=== PATIENT | female | born 1990 | race Caucasian/White ===

== ENCOUNTER 2018-11-16 07:11 | Emergency (ER) | payer OTHER ==
[2018-11-16 08:04] LABS: Absolute Lymphocytes (CBC) 1.6 K/uL (0.7-4.9); Absolute Monocytes 0.7 K/uL (0.1-1.3); Absolute Neutrophil 9.9 K/uL (1.8-8.0); Basophils % 0.3 % (0-1.3); Eosinophils % 1.6 % (0-4.4); Hematocrit 41.5 % (36.0-45.0); Lymphocytes % 12.8 % (15.3-44.8); MPV 9.8 fL (7.6-11.3); Monocytes % 5.5 % (3.3-12.3); RBC Red Blood Cell Count 4.58 M/uL (3.86-4.86)
[2018-11-16] MEDS ORDERED: ONDANSETRON 4 MG/2 ML VIAL ONE (08:11)
[2018-11-16] MEDS ORDERED: NA CHLORIDE 0.9% 1,000 ML ONE (08:11)
[2018-11-16] MEDS ORDERED: KETOROLAC 30 MG/ML INJ ONE (08:11)
--- NOTE | 2018-11-16 08:31 | RAD REPORT ---
EXAM DESCRIPTION: CT - Stone Protocol - 11/16/2018 8:11 am CLINICAL HISTORY: Right-sided back and flank pain COMPARISON: None. TECHNIQUE: Axial 5 mm thick images were obtained without oral or IV contrast. The [id number]-[id number] span s the entirety of the system including uppermost abdomen and lung bases. All CT scans are performed using dose optimization technique as appropriate and may include automated exposure control or mA/KV adjustment according to patient size. FINDINGS: No hydronephrosis is present and no obstructing ureteral calculi. No suspicious renal mass es. Isodense masses and pyelonephritis are not excluded on a stone protocol CT scan. No urinary bladd er suspicious finding. No significant adrenal finding. There is faint mineralization of the renal pyr amids not seen as an acutely significant finding. Imaged portions of the liver, spleen and pancreas show no suspicious findings on non-contrast imaging . Cholecystectomy clips are present. No biliary tree dilatation. No suspicious bowel findings. No appendicitis findings. Uterus and ovaries are within normal limits f or a noncontrast study. Physiologic quantity of free fluid is seen in the cul de sac. No hernia, mass or bulky lymphadenopathy noted. No free air or pneumatosis. No focal inflammatory str anding. No significant bony abnormality. IMPRESSION: Negative noncontrast CT study for acute or significant finding. Isodense masses and pyelonephritis are not excluded on stone protocol technique.
[2018-11-16 09:06] LABS: BUN Blood Urea Nitrogen 16 mg/dL (7-18); Bicarbonate 26 mmol/L (21-32); Glucose Level 97 mg/dL (74-106); Potassium 3.5 mmol/L (3.5-5.1); Sodium Level 143 mmol/L (136-145)
[2018-11-16 09:09] LABS: Urine Blood 1+ (NEG); Urine Glucose NEGATIVE (NEG); Urine Protein NEGATIVE (NEG); Urine Specific Gravity >1.030 (1.005-1.030); Urine pH 5.5 (5.0-7.0)
--- NOTE | 2018-11-16 09:17 | ER ---
Nurse's Notes [facility] Name: Tom Puentes Age: 28 yrs Sex: Female : 1990 Arrival Date: 11/16/2018 Time: 07:16 Bed 13 Private MD: Diagnosis: Right flank pain Presentation: 11/16 07:27 Presenting complaint: Patient states: right mid back pain radiating to right lateral aa5 aspect of abdomen that began last night. Pt denies know injury, pt states "I thought it was period cramps but usually the period cramps I have are in my lower back". Transition of care: patient was not received from another setting of care. Onset of symptoms was October 2018. Risk Assessment: Do you want to hurt yourself or someone else? Patient reports no desire to harm self or others. Initial Sepsis Screen: Does the patient meet any 2 criteria? No. Patient's initial sepsis screen is negative. Does the patient have a suspected source of infection? No. Patient's initial sepsis screen is negative. Care prior to arrival: None. 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 - Social history:: Smoking status: Patient/guardian denies using tobacco. - Ebola Screening: : No symptoms or risks identified at this time. Screenin:55 Abuse screen: Denies threats or abuse. Denies injuries from another. Nutritional jl7 screening: No deficits noted. Tuberculosis screening: No symptoms or risk factors identified. Fall Risk IV access (20 points). Total Moran Fall Scale indicates No Risk (0-24 pts). Assessment: 07:55 General: Appears in no apparent distress. uncomfortable, Behavior is calm, cooperative, jl7 appropriate for age. Pain: Complains of pain in right mid back Pain radiates to right lower quadrant Pain currently is 8 out of 10 on a pain scale. Quality of pain is described as "Pain" Pain began "It woke me up last night." Is continuous. Neuro: Level of Consciousness is awake, alert, obeys commands, Oriented to person, place, time, situation. Cardiovascular: Patient's skin is warm and dry. Respiratory: Airway is patent Respiratory effort is even, unlabored, Respiratory pattern is regular, symmetrical. GI: No signs and/or symptoms were reported involving the gastrointestinal system. : No signs and/or symptoms were reported regarding the genitourinary system. EENT: No signs and/or symptoms were reported regarding the EENT system. Derm: Skin is pink, warm \\T\\ dry. 08:50 Reassessment: Patient appears in no apparent distress at this time. Patient and/or jl7 family updated on plan of care and expected duration. Pain level reassessed. Patient is alert, oriented x 3, equal unlabored respirations, skin warm/dry/pink. Pt reports decreased pain at this time. ERP notified Patient states symptoms have improved. Vital Signs: 07:28 BP 133 / 78; Pulse 71; Resp 16 S; Temp 98.3(TE); Pulse Ox 98% on R/A; Weight 77.11 kg aa5 (R); Height 5 ft. 5 in. (165.10 cm) (R); Pain 8/10; 09:00 BP 115 / 81; Pulse 61; Resp 16 S; Pulse Ox 100% on R/A; jl7 07:28 Body Mass Index 28.29 (77.11 kg, 165.10 cm) aa5 ED Course: 07:16 Patient arrived in ED. mr 07:23 Arm band placed on Patient placed in an exam room, on a stretcher. aa5 07:27 Les Cade RN is Primary Nurse. jl7 07:28 Triage completed. aa5 07:37 Angelique Mata FNP-C is PHCP. kb 07:37 Alejandro Silva MD is Attending Physician. kb 07:55 Patient has correct armband on for positive identification. Placed in gown. Bed in low jl7 position. Call light in reach. Side rails up X 1. Pulse ox on. NIBP on. Warm blanket given. 07:55 Initial lab(s) drawn, by me, sent to lab. Urine collected: clean catch specimen, jl7 cloudy. Inserted saline lock: 22 gauge in right antecubital area, using aseptic technique. Blood collected. 08:11 CT completed. Patient tolerated procedure well. Patient moved to CT via wheelchair. kw1 Patient moved back from CT. 08:12 CT Stone Protocol In Process Unspecified. EDMS 09:28 No provider procedures requiring assistance completed. IV discontinued, intact, jl7 bleeding controlled, No redness/swelling at site. Pressure dressing applied. Administered Medications: 08:00 Drug: NS 0.9% 1000 ml Route: IV; Rate: 1000 ml; Site: right forearm; jl7 09:00 Follow up: IV Status: Completed infusion; IV Intake: 1000ml jl7 08:01 Drug: TORadol 30 mg Route: IVP; Site: right forearm; jl7 08:49 Follow up: Response: No adverse reaction; Pain is decreased jl7 08:03 Drug: Zofran 4 mg Route: IVP; Site: right forearm; jl7 08:49 Follow up: Response: No adverse reaction; Nausea is decreased jl7 Intake: 09:00 IV: 1000ml; Total: 1000ml. jl7 Outcome: 09:16 Discharge ordered by . [place] 09:28 Discharged to home ambulatory. jl7 09:28 Condition: stable 09:28 Discharge instructions given to patient, Instructed on discharge instructions, follow up and referral plans. medication usage, Demonstrated understanding of instructions, follow-up care, medications, Prescriptions given X 1. 09:29 Patient left the ED. jl7 Signatures: Dispatcher [employer] EDMS Angelique Mata, GARAGE SUPERVISOR-C GARAGE SUPERVISOR-Ckfred Yovany Stefany Richardson, Josey, RN RN aa5 Les Cade RN RN jl7 Kendra Santillan kw1 Corrections: (The following items were deleted from the chart) 10:18 10:17 IV Status: Completed infusion; IV Intake: 1000ml jl7 jl7
--- NOTE | 2018-11-16 09:17 | EDPHYS ---
Physician Documentation [facility] Name: Tom Puentes Age: 28 yrs Sex: Female : 1990 Arrival Date: 11/16/2018 Time: 07:16 Bed 13 Private MD: ED Physician Alejandro Silva HPI: 11/16 08:32 This 28 yrs old Female presents to ER via Ambulatory with complaints of Back kb Pain. 08:32 The patient complains of pain in the right flank. The pain radiates to the abdomen. kb Onset: The symptoms/episode began/occurred last night. Modifying factors: The symptoms are alleviated by nothing. the symptoms are aggravated by nothing. Associated signs and symptoms: Pertinent positives: nausea, Pertinent negatives: diarrhea, dizziness, dysuria, fever, urinary frequency, headache, hematuria, pain radiating to the lower extremities, vomiting. Severity of pain: At its worst the pain was moderate in the emergency department the pain is unchanged. The patient has not experienced similar symptoms in the past. The patient has not recently seen a physician. 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 - Social history:: Smoking status: Patient/guardian denies using tobacco. - Ebola Screening: : No symptoms or risks identified at this time. ROS: 08:32 Constitutional: Negative for fever, chills, and weight loss, Cardiovascular: Negative kb for chest pain, palpitations, and edema, Respiratory: Negative for shortness of breath, cough, wheezing, and pleuritic chest pain, Abdomen/GI: Negative for abdominal pain, nausea, vomiting, diarrhea, and constipation, : Negative for injury, bleeding, discharge, and swelling, MS/Extremity: Negative for injury and deformity, Skin: Negative for injury, rash, and discoloration, Neuro: Negative for headache, weakness, numbness, tingling, and seizure. 08:32 Back: Positive for flank pain, on the right. Exam: 08:31 Constitutional: This is a well developed, well nourished patient who is awake, alert, kb and in no acute distress. Head/Face: Normocephalic, atraumatic. Neck: Trachea midline, no thyromegaly or masses palpated, and no cervical lymphadenopathy. Supple, full range of motion without nuchal rigidity, or vertebral point tenderness. No Meningismus. Chest/axilla: Normal chest wall appearance and motion. Nontender with no deformity. No lesions are appreciated. Cardiovascular: Regular rate and rhythm with a normal S1 and S2. No gallops, murmurs, or rubs. Normal PMI, no JVD. No pulse deficits. Respiratory: Lungs have equal breath sounds bilaterally, clear to auscultation and percussion. No rales, rhonchi or wheezes noted. No increased work of breathing, no retractions or nasal flaring. Abdomen/GI: Soft, non-tender, with normal bowel sounds. No distension or tympany. No guarding or rebound. No evidence of tenderness throughout. Skin: Warm, dry with normal turgor. Normal color with no rashes, no lesions, and no evidence of cellulitis. MS/ Extremity: Pulses equal, no cyanosis. Neurovascular intact. Full, normal range of motion. Neuro: Awake and alert, GCS 15, oriented to person, place, time, and situation. Cranial nerves II-XII grossly intact. Motor strength 5/5 in all extremities. Sensory grossly intact. Cerebellar exam normal. Normal gait. 08:31 Back: CVA tenderness, that is mild, is noted on the right. Vital Signs: 07:28 BP 133 / 78; Pulse 71; Resp 16 S; Temp 98.3(TE); Pulse Ox 98% on R/A; Weight 77.11 kg aa5 (R); Height 5 ft. 5 in. (165.10 cm) (R); Pain 8/10; 09:00 BP 115 / 81; Pulse 61; Resp 16 S; Pulse Ox 100% on R/A; jl7 07:28 Body Mass Index 28.29 (77.11 kg, 165.10 cm) aa5 MDM: 07:37 Patient medically screened. kb 08:31 Data reviewed: vital signs, nurses notes. Data interpreted: Pulse oximetry: on room air kb is 98 %. Interpretation: normal. 09:15 Counseling: I had a detailed discussion with the patient and/or guardian regarding: the kb historical points, exam findings, and any diagnostic results supporting the discharge/admit diagnosis, lab results, radiology results, the need for outpatient follow up, a family practitioner, to return to the emergency department if symptoms worsen or persist or if there are any questions or concerns that arise at home. 11/16 07:52 Order name: Basic Metabolic Panel; Complete Time: 09:14 kb 11/16 07:52 Order name: CBC with Diff; Complete Time: 08:07 kb 11/16 07:52 Order name: CT Stone Protocol; Complete Time: 08:33 kb 11/16 07:52 Order name: Urine Dipstick--Ancillary (enter results); Complete Time: 09:14 kb 11/16 07:52 Order name: Urine --Ancillary (enter results); Complete Time: 09:14 kb 11/16 07:52 Order name: IV Saline Lock; Complete Time: 08:04 kb 11/16 07:52 Order name: Labs collected and sent; Complete Time: 08:04 kb Administered Medications: 08:00 Drug: NS 0.9% 1000 ml Route: IV; Rate: 1000 ml; Site: right forearm; jl7 09:00 Follow up: IV Status: Completed infusion; IV Intake: 1000ml jl7 08:01 Drug: TORadol 30 mg Route: IVP; Site: right forearm; jl7 08:49 Follow up: Response: No adverse reaction; Pain is decreased jl7 08:03 Drug: Zofran 4 mg Route: IVP; Site: right forearm; jl7 08:49 Follow up: Response: No adverse reaction; Nausea is decreased jl7 Disposition: 10:23 Co-signature as Attending Physician, Alejandro Silva MD I agree with the assessment and kdr plan of care. Disposition: 11/16/18 09:16 Discharged to Home. Impression: Right flank pain. - Condition is Stable. - Discharge Instructions: Flank Pain, Edcj-th-Pepr. - Prescriptions for Diclofenac Sodium 75 mg Oral Tablet, Delayed Release (E.C.) - take 1 tablet by ORAL route 2 times per day As needed; 30 tablet. - Medication Reconciliation Form, Thank You Letter, Antibiotic Education, Prescription Opioid Use, Work release form form. - Follow up: Emergency Department; When: As needed; Reason: Worsening of condition. Follow up: Private Physician; When: 2 - 3 days; Reason: Recheck today's complaints, Continuance of care, Re-evaluation by your physician. Signatures: Dispatcher [employer] EDAngelique Bethea, CAD DESIGN ENGINEER-C CAD DESIGN ENGINEER-Ckb Alejandro Silva MD MD kdr Calderon, Audri RN RN aa5 Les Cade RN RN jl7 Corrections: (The following items were deleted from the chart) 09:29 09:16 11/16/2018 09:16 Discharged to Home. Impression: Right flank pain. Condition is jl7 Stable. Forms are Medication Reconciliation Form, Thank You Letter, Antibiotic Education, Prescription Opioid Use. Follow up: Emergency Department; When: As needed; Reason: Worsening of condition. Follow up: Private Physician; When: 2 - 3 days; Reason: Recheck today's complaints, Continuance of care, Re-evaluation by your physician. kb
[2018-11-16 09:35] VITALS: TEMP 98.3
[2018-11-16 09:36] VITALS: BP 115/81; O2SAT 100
== END 2018-11-16 09:29 | disposition home or self-care (01) ==
LOC: ER 07:11
DX: R10.9 Unspecified abdominal pain (principal)
CPT/HCPCS: 36415; 74176; 76377; 80048; 81003; 81025; 85025; 96361; 96374; 96375; 99284; J2405; J7030

== ENCOUNTER 2018-11-16 15:51 | Day surgery (SDC) | payer OTHER ==
[2018-11-16] MEDS ORDERED: NA CHLORIDE 0.9% 1,000 ML ONE (17:28)
[2018-11-16] MEDS ORDERED: KETOROLAC 30 MG/ML INJ ONE ×2 (17:28→20:05)
[2018-11-16] MEDS ORDERED: ONDANSETRON 4 MG/2 ML VIAL ONE ×2 (17:28→20:05)
[2018-11-16 17:43] LABS: Absolute Lymphocytes (CBC) 1.3 K/uL (0.7-4.9); Absolute Monocytes 0.8 K/uL (0.1-1.3); Absolute Neutrophil 12.6 K/uL (1.8-8.0); Basophils % 0.2 % (0-1.3); Eosinophils % 0.3 % (0-4.4); Hematocrit 37.7 % (36.0-45.0); Lymphocytes % 8.9 % (15.3-44.8); Monocytes % 5.4 % (3.3-12.3); RBC Red Blood Cell Count 4.14 M/uL (3.86-4.86)
--- NOTE | 2018-11-16 17:56 | RAD REPORT ---
EXAM DESCRIPTION: US - Transvaginal Study Probe - 11/16/2018 5:45 pm CLINICAL HISTORY: abd/pelvic pain R Pelvic pain. COMPARISON: Stone Protocol dated 11/16/2018 FINDINGS: The uterus is normal in size, shape and echotexture. The uterus measures 6.4 x 5.0 x 4.2 c m. The endometrial stripe measures 4 mm, normal. Both ovaries are normal in size, shape and echotexture. The right ovary measures 3.9 x 1.6 x 1.4 cm. The left ovary measures 4.0 x 1.8 x 1.6 cm. No ovarian or parovarian lesions. No adnexal masses. Normal Doppler blood flow was demonstrated to both ovaries. No significant pelvic ascites. IMPRESSION: Unremarkable study.
[2018-11-16 18:01] LABS: ALT/SGPT 27 U/L (12-78); AST/SGOT 22 U/L (15-37); Albumin 3.9 g/dL (3.4-5.0); Alkaline Phosphatase 52 U/L (45-117); BUN Blood Urea Nitrogen 13 mg/dL (7-18); Bicarbonate 30 mmol/L (21-32); Bilirubin Direct 0.3 mg/dL (0-0.2); Bilirubin Total 1.5 mg/dL (0.2-1.0); Glucose Level 91 mg/dL (74-106); Lipase 73 U/L (73-393); Potassium 3.7 mmol/L (3.5-5.1); Protein, Total 6.8 g/dL (6.4-8.2); Sodium Level 145 mmol/L (136-145)
--- NOTE | 2018-11-16 18:04 | RAD REPORT ---
EXAM DESCRIPTION: CTAbdomen Pelvis W Contrast - 11/16/2018 5:54 pm CLINICAL HISTORY: Abdominal pain. RLQ abd pain COMPARISON: Stone Protocol dated 11/16/2018 TECHNIQUE: Biphasic CT imaging of the abdomen and pelvis was performed with 100 ml non-ionic IV cont rast. All CT scans are performed using dose optimization technique as appropriate and may include automated exposure control or mA/KV adjustment according to patient size. FINDINGS: The lung bases are clear.Cholecystectomy. The liver, spleen, pancreas, adrenal glands and kidneys are within normal limits. No bowel obstruction, free air, free fluid or abscess. The appendix is thickened to 10-11 mm, raisin g the possibility of acute early appendicitis. No evidence of significant lymphadenopathy. No suspicious bony findings. IMPRESSION: Mildly thickened appendix is identified, raising the possibility of early acute appendic itis.
--- NOTE | 2018-11-16 18:43 | ER ---
Nurse's Notes [facility] Name: Tom Puentes Age: 28 yrs Sex: Female : 1990 Arrival Date: 11/16/2018 Time: 15:52 Bed 18 Private MD: Diagnosis: Acute appendicitis Presentation: 11/16 15:55 Presenting complaint: Patient states: "I was just seen here this morning and my back aa5 was hurting but now it's my stomach". Pt c/o pain to right mid back radiating to RUQ. Transition of care: patient was not received from another setting of care. Onset of symptoms was October 2018. Risk Assessment: Do you want to hurt yourself or someone else? Patient reports no desire to harm self or others. Initial Sepsis Screen: Does the patient meet any 2 criteria? No. Patient's initial sepsis screen is negative. Does the patient have a suspected source of infection? No. Patient's initial sepsis screen is negative. Care prior to arrival: None. 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 - Social history:: Smoking status: Patient/guardian denies using tobacco. - Ebola Screening: : No symptoms or risks identified at this time. - Family history:: not pertinent. - Hospitalizations: : No recent hospitalization is reported. Screenin:25 Abuse screen: Denies threats or abuse. Denies injuries from another. Nutritional aj screening: No deficits noted. Tuberculosis screening: No symptoms or risk factors identified. Fall Risk None identified. Assessment: 17:25 General: Appears in no apparent distress. comfortable, Behavior is calm, cooperative, aj appropriate for age. Pain: Complains of pain in back and abdomen. Neuro: Level of Consciousness is awake, alert, obeys commands, Oriented to person, place, time, situation, Appropriate for age. Respiratory: Airway is patent Respiratory effort is even, unlabored, Respiratory pattern is regular, symmetrical. Derm: Skin is intact, is healthy with good turgor, Skin is pink, warm \\T\\ dry. normal. 18:33 Reassessment: Rody, Manufacturers Service Representative notified that pt will be admitted to OR in approx iw 30 minutes, per Dr. Heath, states she will call out crew now. 19:06 Reassessment: Patient appears in no apparent distress at this time. Patient is alert, rr5 oriented x 3, equal unlabored respirations, skin warm/dry/pink. dr. heath at bedside seen and examined the patient. Patient states symptoms have improved. 19:15 Reassessment: taken to OR via wheelchair, endorsed to kamryn. rr5 Vital Signs: 15:56 BP 132 / 82; Pulse 112; Resp 18 S; Temp 99.2(O); Pulse Ox 98% on R/A; Pain 6/10; aa5 18:42 BP 131 / 72; Pulse 89; Resp 19; Pulse Ox 99% on R/A; aj ED Course: 15:52 Patient arrived in ED. aa5 15:55 Triage completed. aa5 15:55 Arm band placed on. aa5 16:42 Thea Nieto, RN is Primary Nurse. aj 16:44 Neville Plummer MD is Attending Physician. wa 17:25 Patient has correct armband on for positive identification. aj 17:25 Inserted saline lock: 20 gauge in left antecubital area, using aseptic technique. Blood aj collected. 17:[address] vr 17:45 Transvaginal Study Probe In Process Unspecified. EDMS 17:54 CT completed. Patient tolerated procedure well. Patient moved back from CT. vr 17:55 CT Abd/Pelvis - W/Contrast In Process Unspecified. EDMS 18:41 Carlos Heath MD is Hospitalizing Provider. wa 19:15 No provider procedures requiring assistance completed. Patient admitted, IV remains in rr5 place. intact. Administered Medications: 17:24 Drug: Zofran 4 mg Route: IVP; Site: left antecubital; aj 18:35 Follow up: Response: Nausea is decreased aj 17:24 Drug: NS 0.9% 1000 ml Route: IV; Rate: 1 bolus; Site: left antecubital; aj 19:11 Follow up: Response: No adverse reaction; IV Status: Completed infusion; IV Intake: rr5 1000ml 17:25 Drug: TORadol 30 mg Route: IVP; Site: left antecubital; aj 18:35 Follow up: Response: Pain is decreased aj 18:43 Drug: Zosyn 3.375 grams Route: IVPB; Infused Over: 60 mins; Site: left antecubital; aj 19:11 Follow up: Response: No adverse reaction; IV Status: Completed infusion; IV Intake: rr5 100ml Intake: 19:11 IV: 100ml; Total: 100ml. rr5 19:11 IV: 1000ml; Total: 1100ml. rr5 Outcome: 18:42 Decision to Hospitalize by Provider. mt 19:15 Patient left the ED. rr5 19:15 Admitted to OR accompanied by nurse, via wheelchair, room OR, with chart, Report called rr5 to kamryn 19:15 Condition: stable 19:15 Instructed on the need for admit. Signatures: Dispatcher [employer] Thea Parker RN RN aj Williams, Irene, RN RN iw Calderon, Audri, RN RN aa5 Davis, Victoria vr Appiah, William, MD MD wa Roque, Raymond, RN RN rr5
--- NOTE | 2018-11-16 18:43 | EDPHYS ---
Physician Documentation [facility] Name: Tom Puentes Age: 28 yrs Sex: Female : 1990 Arrival Date: 11/16/2018 Time: 15:52 Bed 18 Private MD: ED Physician Neville Plummer HPI: 11/16 18:33 This 28 yrs old Female presents to ER via Ambulatory with complaints of wa Abdominal Pain. 18:33 The patient presents with abdominal pain in the periumbilical area. right lower wa quadrant. Onset: The symptoms/episode began/occurred today. The symptoms do not radiate. Associated signs and symptoms: Pertinent positives: diarrhea x 1 , Pertinent negatives: chest pain, shortness of breath, vomiting. The symptoms are described as dull. Modifying factors: The symptoms are alleviated by nothing, the symptoms are aggravated by nothing. Severity of pain: At its worst the pain was moderate in the emergency department the pain is actually worse moderately. The patient has experienced a previous episode, seen here earlier today. pain worse when got home. The patient has been recently seen by a physician: this ED this AM. 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 - Social history:: Smoking status: Patient/guardian denies using tobacco. - Ebola Screening: : No symptoms or risks identified at this time. - Family history:: not pertinent. - Hospitalizations: : No recent hospitalization is reported. ROS: 18:36 Constitutional: Negative for fever, chills, and weight loss, Eyes: Negative for injury, wa pain, redness, and discharge, ENT: Negative for injury, pain, and discharge, Neck: Negative for injury, pain, and swelling, Cardiovascular: Negative for chest pain, palpitations, and edema, Respiratory: Negative for shortness of breath, cough, wheezing, and pleuritic chest pain, Back: Negative for injury and pain, MS/Extremity: Negative for injury and deformity, Skin: Negative for injury, rash, and discoloration, Neuro: Negative for headache, weakness, numbness, tingling, and seizure, Psych: Negative for depression, anxiety, suicide ideation, homicidal ideation, and hallucinations. 18:36 Abdomen/GI: Positive for abdominal pain, diarrhea, Negative for vomiting. 18:36 All other systems are negative. Exam: 18:37 Constitutional: This is a well developed, well nourished patient who is awake, alert, wa and in no acute distress. Head/Face: Normocephalic, atraumatic. Eyes: Pupils equal round and reactive to light, extra-ocular motions intact. Lids and lashes normal. Conjunctiva and sclera are non-icteric and not injected. Cornea within normal limits. Periorbital areas with no swelling, redness, or edema. ENT: Nares patent. No nasal discharge, no septal abnormalities noted. Tympanic membranes are normal and external auditory canals are clear. Oropharynx with no redness, swelling, or masses, exudates, or evidence of obstruction, uvula midline. Mucous membranes moist. Neck: Trachea midline, no thyromegaly or masses palpated, and no cervical lymphadenopathy. Supple, full range of motion without nuchal rigidity, or vertebral point tenderness. No Meningismus. Chest/axilla: Normal chest wall appearance and motion. Nontender with no deformity. No lesions are appreciated. Cardiovascular: Regular rate and rhythm with a normal S1 and S2. No gallops, murmurs, or rubs. Normal PMI, no JVD. No pulse deficits. Respiratory: Lungs have equal breath sounds bilaterally, clear to auscultation and percussion. No rales, rhonchi or wheezes noted. No increased work of breathing, no retractions or nasal flaring. Back: No spinal tenderness. No costovertebral tenderness. Full range of motion. Skin: Warm, dry with normal turgor. Normal color with no rashes, no lesions, and no evidence of cellulitis. MS/ Extremity: Pulses equal, no cyanosis. Neurovascular intact. Full, normal range of motion. Neuro: Awake and alert, GCS 15, oriented to person, place, time, and situation. Cranial nerves II-XII grossly intact. Motor strength 5/5 in all extremities. Sensory grossly intact. Cerebellar exam normal. Normal gait. Psych: Awake, alert, with orientation to person, place and time. Behavior, mood, and affect are within normal limits. 18:37 Abdomen/GI: Inspection: abdomen appears normal, Bowel sounds: normal, in all quadrants, Palpation: soft, in all quadrants, mild abdominal tenderness, in the umbilical area and right lower quadrant. Vital Signs: 15:56 BP 132 / 82; Pulse 112; Resp 18 S; Temp 99.2(O); Pulse Ox 98% on R/A; Pain 6/10; aa5 18:42 BP 131 / 72; Pulse 89; Resp 19; Pulse Ox 99% on R/A; aj MDM: 16:44 Patient medically screened. wa 18:37 Differential diagnosis: noted low grade fever, tachycardic low abd pain. seen here wa earlier. will r/o acute appy vs acute ovarian path. will reassess. Data reviewed: vital signs, nurses notes, lab test result(s), radiologic studies. Test interpretation: by ED physician or midlevel provider: labs noted for leukocytosis. pelvic US no acute process. CTabd/pelvis: consistent with early acute appy. Response to treatment: the patient's symptoms have markedly improved after treatment. Physician consultation: Carlos Miller MD. 18:41 ED course: zosyn IV. spoke with regional transportation manager surgeon. in route to see pt in 30 min. de 11/16 17:12 Order name: Basic Metabolic Panel; Complete Time: 18:13 de 11/16 17:12 Order name: CBC with Diff de 11/16 17:12 Order name: Hepatic Function; Complete Time: 18:13 de 11/16 17:12 Order name: Lipase; Complete Time: 18:13 de 11/16 17:46 Order name: CBC Smear Scan EDLA 11/16 17:12 Order name: IV Saline Lock; Complete Time: 17:25 de 11/16 17:12 Order name: Labs collected and sent; Complete Time: 17:25 de 11/16 17:14 Order name: CT Abd/Pelvis - W/Contrast; Complete Time: 18:13 de 11/16 17:35 Order name: Transvaginal Study Probe; Complete Time: 18:13 EDMS Administered Medications: 17:24 Drug: Zofran 4 mg Route: IVP; Site: left antecubital; aj 18:35 Follow up: Response: Nausea is decreased aj 17:24 Drug: NS 0.9% 1000 ml Route: IV; Rate: 1 bolus; Site: left antecubital; aj 19:11 Follow up: Response: No adverse reaction; IV Status: Completed infusion; IV Intake: rr5 1000ml 17:25 Drug: TORadol 30 mg Route: IVP; Site: left antecubital; aj 18:35 Follow up: Response: Pain is decreased aj 18:43 Drug: Zosyn 3.375 grams Route: IVPB; Infused Over: 60 mins; Site: left antecubital; aj 19:11 Follow up: Response: No adverse reaction; IV Status: Completed infusion; IV Intake: rr5 100ml Disposition: 11/16/18 18:42 Hospitalization ordered by Carlos Miller for Observation. Preliminary diagnosis is Acute appendicitis. - Bed requested for Operating Room. - Status is Observation. rr5 - Condition is Stable. - Problem is new. - Symptoms have improved. UTI on Admission? No Signatures: Dispatcher [employer] EDThea Johnson RN RN aj Calderon, Audri RN RN aa5 Neville Plummer MD MD wa Roque, Raymond, RN RN rr5 Corrections: (The following items were deleted from the chart) 17:35 17:15 Pelvis Complete+US.RAD.BRZ ordered. EDLA EDLA 19:15 18:42 Hospitalization Ordered by Carlos Miller MD for Observation. Preliminary diagnosis rr5 is Acute appendicitis. Bed requested for Operating Room. Status is Observation. Condition is Stable. Problem is new. Symptoms have improved. UTI on Admission? No. jessenia
[2018-11-16] MEDS ORDERED: PIPER/TAZO/NS 3.375gm 3.375 GM/100 ML BAG ONE (18:50)
[2018-11-16 18:59] LABS: Blood Morphology Comment NOT SEEN (NOT SEEN); Platelet Estimate ADEQ; Urine White Blood Cell Casts OK
[2018-11-16] MEDS ORDERED: PROPOFOL 200 MG/20 ML VIAL IV ONE (19:25)
[2018-11-16] MEDS ORDERED: FENTANYL CITR 100 MCG/2 ML ONE ×2 (19:26→20:25)
[2018-11-16] MEDS ORDERED: ROCURONIUM 50 MG/5 ML VIAL IV ONE (19:26)
[2018-11-16] MEDS ORDERED: LIDOCAINE 2% MPF 5 ML VIAL ONE (19:27)
[2018-11-16] MEDS ORDERED: Ringers Lactate 1,000 ML IV ONE (19:30)
[2018-11-16] MEDS ORDERED: BUPIVACAINE 0.25% PF 10 ML VIAL ONE (19:44)
[2018-11-16] MEDS ORDERED: DEXAMETHASONE 10 MG/ML VIAL ONE (20:06)
[2018-11-16] MEDS ORDERED: EPHEDRINE SULF 50 MG/ML VIAL ONE (20:06)
[2018-11-16] MEDS ORDERED: NEOSTIGMINE 1 MG/ML -10 ML VIAL ONE (20:10)
[2018-11-16] MEDS ORDERED: GLYCOPYRROLATE 0.2 MG/ML SYR ONE (20:10)
--- NOTE | 2018-11-16 20:24 | P.OP ---
Preoperative diagnosis: Acute Appendicitis Postoperative diagnosis: Acute Appendicitis Primary procedure: Laparoscopic Appendectomy Anesthesia: GETA + Local Estimated blood loss: <5cc Specimen: Vermiform Appendix Findings: Acute Appendicitis, non-perforated Complications: None Transferred to: Recovery Room Condition: Good
[2018-11-16] MEDS: HYDROMORPHONE HCL 1 MG/ML INJ ONE ×2 (20:42→20:47)
[2018-11-16] MEDS ORDERED: ONDANSETRON HCL 40 MG/20 ML VIAL ONE (20:56)
[2018-11-16] MEDS ORDERED: HYDROCODONE/APAP 7.5/325 MG TAB ONE (21:10)
[2018-11-16] MEDS ORDERED: IBUPROFEN 400 MG TAB ONE (21:22)
[2018-11-16 21:40] VITALS: BP 116/61; TEMP 98.2; O2SAT 100
--- NOTE | 2018-11-17 05:45 | PREOPHP ---
Date of Admission: 11/16/2018 Brief History Of Present Illness: The patient is a 28-year-old female, who presents to the hospital with abdominal pain beginning earlier approximately 7 a.m., she stated the pain was predomi nantly in the back and right side of her abdomen. She came to the ER earlier this morning, was worke d up and sent home with pain medication, but since getting home, her pain got significantly worse. T he pain medication given over the counter helped with her back pain, but the abdominal pain began to intensify around the periumbilical region and to the right lower quadrant. It got significantly wors e and as such, she came back to the emergency room. Past Medical History: Significant for cholelithiasis. Past Surgical History: She had a laparoscopic cholecystectomy and she has had an EGD and colonoscopy . Social History: She denies smoking. She drinks recreationally. She denies any recreational drug us e. 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 Allergies: SHE HAS NO KNOWN DRUG ALLERGIES. Medications: None. Review of Systems: A 10-point review of systems other than HPI, denies. Physical Examination: General: At the time of my examination, she is awake, alert, oriented. Psychiatric: She is appropria te and conversive. HEENT: She is normocephalic. Sclerae anicteric. Mucosa is moist. Oropharynx is clear. Neck: Supple. No JVD. Chest: Normal expansion and excursion. Cardiovascular: Regular rate and rhythm. Pulmonary: Clear to auscultation bilaterally. Abdomen: Soft with positive right lower quadrant tenderness to palpation. Positive focal peritoniti s. Positive rebound. Positive guarding. All in the region of the McBurney's point, localized aroun d the region of McBurney's point. Extremities: No clubbing, cyanosis, or edema. Skin: Warm and dry. Laboratory Data: Reveals white blood count 14.8, hemoglobin is 12.6, hematocrit of 37.7, platelet co unt is 168, neutrophils 85%. Sodium 145, potassium 3.7, chloride 110, carbon dioxide 30, BUN 13, cre atinine 0.67, glucose is 91, calcium is 8.5, total bilirubin 1.5, direct component 0.5, AST is 22, AL T 27, alkaline phosphatase is 52, lipase is 73. She had a HCG urine test on 11/16/2018 at 7:52 a.m., which was negative. She had an imaging performed which included a CT scan of the abdomen and pelvis as well as a transvag inal ultrasound. CT of the abdomen and pelvis was officially read as the appendix is thickened to 10-11 mm, raising th e possibility of an acute early appendicitis. No evidence of significant lymphadenopathy. No suspic ious bony findings. She additionally had a transvaginal ultrasound, which was officially read as unremarkable study. Assessment And Plan: This is a 28-year-old female who comes in with signs and symptoms of early acut e appendicitis. 1.IV fluid hydration. 2.Antibiotic coverage. 3.I have explained the risks, benefits, and alternatives of laparoscopic, possible open appendectomy including but not limited to bleeding, infection, damage to surrounding tissues, need for further op eration and procedures. The patient agrees to proceed as indicated. MATTEO/DAVIAN Voice ID: [id number]
--- NOTE | 2018-11-17 06:51 | OP ---
Date of Procedure: 11/16/2018 Surgeon: Carlos Miller MD, Preoperative Diagnosis: Acute appendicitis. Postoperative Diagnosis: Acute appendicitis. Procedure Performed: Laparoscopic appendectomy. Anesthesia: General endotracheal plus local. Estimated Blood Loss: Less than 5 cc. Specimen: Vermiform appendix. Findings: Acute appendicitis, nonperforated. Complications: None. Disposition: Transferred to recovery room in good condition. Procedure In Detail: After informed consent was obtained, patient was brought to the operating room, prepped and draped in the usual sterile fashion. After adequate anesthesia was achieved, an infraum bilical area was anesthetized with 0.25% Marcaine, sharply incised and a 5-mm trocar was introduced i n the abdomen without evidence of complication. Insufflation was obtained to 15 mmHg at this time. The area was inspected. There was no injury to vital structures upon entry into the abdomen. Additi onal trocar site chosen in the suprapubic region. This was similarly anesthetized, sharply incised, and a 5-mm trocar was introduced in the abdomen without evidence of complication. Additional trocar site was chosen in the left lower quadrant. This was similarly anesthetized, sharply incised. A 5-m m trocar was introduced in the abdomen without evidence of complication. The patient was then positi oned in head down, right side up position. Ratcheted grasper was used to grasp the patient's appendi x. There were some adhesions between the cecum and the anterior abdominal wall. This was taken down with the EnSeal device. The appendix was then grasped, elevated, and a mesoappendiceal window was c reated with a [place] retractor. The Endo NUNU 35 blue load was then fired across the base of the ap pendix with good approximation of the tissues. The LigaSure device then used to take the mesoappendi x down without evidence of complication. Good hemostasis was achieved. The staple line appeared to be in good anatomic position without any evidence of leakage. The appendix was then placed in an End oCatch bag, removed through umbilical trocar. There was no evidence of perforation at this time. Th e appendix was sent off for pathologic examination at this time. The area was copiously irrigated mu ltiple times until completely clear. The area was inspected for proper hemostasis, which was achieve d without any additional hemostatic maneuvers. Additionally, the staple line appeared to be in good anatomic position without any leakage. The abdomen was then copiously irrigated and suctioned comple tely dry. The patient was positioned in neutral position. The abdomen was suctioned out one last ti me and the umbilical trocar was then removed. The umbilical trocar site was then closed with a 12 mm under direct visualization without evidence of complication. The abdomen was then completely desuff lated under direct visualization without evidence of complication. All trocars were then removed. A ll skin incisions were copiously irrigated and closed with a 4-0 Monocryl in a running fashion. Derm abond was placed over top. The patient tolerated the procedure well without evidence of complication and transferred to PACU in good condition. All counts were correct at the end of the case. MATTEO/DAVIAN Voice ID: [id number] Report ID: [id number]
== END 2018-11-16 21:39 | disposition home or self-care (01) ==
LOC: ER 15:51 → OR 20:10
PROVIDERS: ATTEND Surgery
PROC: 0DTJ4ZZ Resection of Appendix, Percutaneous Endoscopic Approach (ICD-10-PCS; principal; 2018-11-16 20:00)
DX: K35.80 Unspecified acute appendicitis (principal)
CPT/HCPCS: 36415; 74177; 76830; 80048; 80076; 83690; 85025; 88304; 96361; 96365; 96375; 99285; J1100; J1170; J2405; J2543; J2704; J2710; J3010; J7030; Q9967

== ENCOUNTER 2019-07-01 15:58 | Emergency (ER) | payer OTHER ==
--- OUTSIDE RECORDS SUMMARY | 2019-07-01 16:01 | XMS REPORT ---
:1990 Author Organization e[employer] Care Team Providers Name Role Phone Marina Hemphill Provider Role Unavailable Allergies, Adverse Reactions, Alerts Substance Reaction Event Type N.K.D.A. Info Not Available Non Drug Allergy Problems Problem Type Condition Code Onset Dates Condition Status Assessment Strep tonsillitis J03.00 Active Problem Anxiety F41.9 Active Assessment Anxiety F41.9 Active Medications Medication Code Code Instructions Start End Date Status Dosage System Date Augmentin [facility] [place] 2] 12525727629 875-125 MG Jun 02, Jun 12, Active 1 tablet Orally every 12 2019 2019 hrs BusPIRone HCl [facility] [place]NOTE 2] [id number] 5 MG Orally Jun 02, Active 1 tablet Three times a 2019 day Results Name Result Date Reference Range Unit Abnormality Flag STREP A RAPID ----Result POS [id number] Summary Purpose eClinicalWorks Submission
--- NOTE | 2019-07-01 17:16 | RAD REPORT ---
EXAM DESCRIPTION: CT - Head Brain Wo Cont - 07/01/2019 5:00 pm CLINICAL HISTORY: Head injury. Rock hit patient's head COMPARISON: None TECHNIQUE: Computed axial tomography of the head was obtained. IV contrast was not requested. All CT scans are performed using dose optimization technique as appropriate and may include automated exposure control or mA/KV adjustment according to patient size. FINDINGS: An intracranial bleed is not seen . The ventricles are normal in caliber. No extra-axial fluid collection is noted. Fluid is present within the left maxillary sinus. Mastoids are clear IMPRESSION: No acute intracranial abnormality is seen. If patient's symptoms persist MRI of the bra in would be recommended. Fluid in left maxillary sinus may indicate acute sinusitis
--- NOTE | 2019-07-01 17:32 | ER ---
Nurse's Notes [facility] Name: Tom Puentes Age: 29 yrs Sex: Female : 1990 Arrival Date: 07/01/2019 Time: 16:00 Bed 17 Private MD: Unknown, Unknown Diagnosis: Acute sinusitis;Superficial injury of head Presentation: 07/01 16:35 Presenting complaint: Patient states: 6 pound rock fell on right side of head last jl7 night then about 1400 clear yellow fluid started dripping out of my nose, called PCP and they advised to come get checked out. Transition of care: patient was not received from another setting of care. Mechanism of Injury: The problem was sustained at home, resulted from rock. Onset of symptoms was July 01, 2019 at 15:00. Risk Assessment: Do you want to hurt yourself or someone else? Patient reports no desire to harm self or others. Initial Sepsis Screen: Does the patient meet any 2 criteria? No. Patient's initial sepsis screen is negative. Does the patient have a suspected source of infection? No. Patient's initial sepsis screen is negative. Care prior to arrival: None. 16:35 Method Of Arrival: Ambulatory [facility] 16:35 Acuity: GIAN 4 jl7 Triage Assessment: 16:48 Neuro: Reports. 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 - Social history:: Smoking status: Patient/guardian denies using tobacco. - Ebola Screening: : No symptoms or risks identified at this time. Screenin:47 Abuse screen: Denies threats or abuse. Denies injuries from another. Nutritional ca1 screening: No deficits noted. Tuberculosis screening: No symptoms or risk factors identified. Fall Risk None identified. Assessment: 16:47 General: Appears in no apparent distress. comfortable, Behavior is calm, cooperative, ca1 appropriate for age. Pain: Denies pain. Neuro: Level of Consciousness is awake, alert, obeys commands, Oriented to person, place, time, situation. Cardiovascular: Heart tones S1 S2 present Capillary refill < 3 seconds Patient's skin is warm and dry. Respiratory: Airway is patent Respiratory effort is even, unlabored, Respiratory pattern is regular, symmetrical, Breath sounds are clear bilaterally. GI: Abdomen is flat, non-distended, Bowel sounds present X 4 quads. Abd is soft and non tender X 4 quads. : No deficits noted. No signs and/or symptoms were reported regarding the genitourinary system. EENT: No deficits noted. No signs and/or symptoms were reported regarding the EENT system. Derm: Skin is intact, is healthy with good turgor, Skin is pink, warm \T\ dry. Musculoskeletal: Circulation, motion, and sensation intact. Capillary refill < 3 seconds, Range of motion: intact in all extremities. 17:45 Reassessment: Patient appears in no apparent distress at this time. Patient is alert, ca1 oriented x 3, equal unlabored respirations, skin warm/dry/pink. Vital Signs: 16:39 BP 111 / 66; Pulse 64; Resp 16; Temp 98.6; Pulse Ox 100% ; Weight 75.75 kg; Height 5 jl7 ft. 5 in. (165.10 cm); Pain 2/10; 17:45 BP 115 / 71; Pulse 71; Resp 16 S; Pulse Ox 100% on R/A; ca1 16:39 Body Mass Index 27.79 (75.75 kg, 165.10 cm) jl7 Orion Coma Score: 16:35 Eye Response: spontaneous(4). Verbal Response: oriented(5). Motor Response: obeys [facility] commands(6). Total: 15. 17:26 Eye Response: spontaneous(4). Verbal Response: oriented(5). Motor Response: obeys commands(6). Total: 15. 17:26 Eye Response: spontaneous(4). Verbal Response: oriented(5). Motor Response: obeys kb commands(6). Total: 15. ED Course: 16:00 Patient arrived in ED. ag5 16:02 Unknown, Unknown is Private Physician. ag5 16:22 Angelique Mata FNP-C [facility]. kb 16:22 Omar Hackett MD is Attending Physician. kb 16:38 Triage completed. jl7 16:39 Arm band placed on left wrist. jl7 16:44 Acob, Rachell, RN is Primary Nurse. ca1 16:47 Patient has correct armband on for positive identification. Bed in low position. Call ca1 light in reach. Side rails up X 1. Pulse ox on. NIBP on. 16:47 No provider procedures requiring assistance completed. Patient did not have IV access ca1 during this emergency room visit. 17:01 CT Head Brain wo Cont In Process Unspecified. EDMS Administered Medications: No medications were administered Outcome: 17:32 Discharge ordered by . [place] 17:46 Discharged to home ambulatory, with significant other. ca1 17:46 Condition: stable 17:46 Discharge instructions given to patient, Instructed on discharge instructions, follow up and referral plans. Demonstrated understanding of instructions, follow-up care. 17:46 Patient left the ED. ca1 Signatures: Dispatcher [employer] EDMS Angelique Mata, VARNISH MELTER HELPER-C VARNISH MELTER HELPER-Les Rogers RN RN jl7 Rachell Bains, RN RN ca1 Kym Boone ag5
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
[2019-07-01 18:55] VITALS: BP 115/71; TEMP 98.6; O2SAT 100
== END 2019-07-01 17:46 | disposition home or self-care (01) ==
LOC: ER 15:58
DX: J01.90 Acute sinusitis, unspecified (principal); W22.8XXA Striking against or struck by other objects, initial encounter; Y93.9 Activity, unspecified; Y92.9 Unspecified place or not applicable; F41.9 Anxiety disorder, unspecified
CPT/HCPCS: 70450; 99283